=== PATIENT | male | born 1930 | race Caucasian/White ===

== ENCOUNTER 2016-12-09 18:16 | Inpatient (IN) | payer MEDICARE, OTHER ==
[~2016-12-09] VITALS: Ht 172.7 cm; Wt 83.0 kg
[~2016-12-09 18:16] MED LIST: DIGO125T PO; DONE10TA PO; FLUO-191 PO; KDUR10 PO; LEVE500T53 PO; LISI-661 PO; MONT10TA21 PO; OMEP20 PO; RIVA15T PO; SILD25 PO; SIMV5TAB6 PO; TAMS0.4C32 PO; TOLT4CAP33 PO
[2016-12-09 19:16] LABS: ANION GAP 8 mmol/L (8-16); CALCIUM, TOTAL 9.6 mg/dL (8.8-10.5); CARBON DIOXIDE 26 mmol/L (22-29); CHLORIDE 101 mmol/L (98-107); CREATININE 1.15 mg/dL (0.60-1.30); GLOMERULAR FILTR. RATE CALC 60 mL/min (>60); POTASSIUM 4.9 mmol/L (3.5-5.1); SODIUM SERUM 135 mmol/L (136-145); UREA NITROGEN, BLOOD 26 mg/dL (7-18)
[2016-12-09 19:17] LABS: EOSINOPHILS # (AUTO) 0.03 K/uL (0.00-0.70)
[2016-12-09 19:22] LABS: BASOPHILS # (AUTO) 0.03 K/uL (0.00-0.20); BASOPHILS % (AUTO) 0.3 % (0.0-2.0); EOSINOPHILS % (AUTO) 0.36 % (1.0-6.0); LYMPHOCYTES # (AUTO) 1.3 K/uL (1.0-4.8); LYMPHOCYTES % (AUTO) 14.7 % (22.0-44.0); MEAN CORPUSCULAR HEMOGLOBIN 33.2 pg (26.0-34.0); MEAN CORPUSCULAR HGB CONC 33.1 G/dL (31.0-37.0); MEAN CORPUSCULAR VOLUME 100 fL (80-100); MONOCYTES # (AUTO) 1.4 K/uL (0.1-1.0); MONOCYTES % (AUTO) 15.5 % (2.0-9.0); NEUTROPHILS # (AUTO) 6.1 K/uL (1.8-7.7); NEUTROPHILS % (AUTO) 69.1 % (40.0-70.0); PLATELET COUNT (AUTO) 184 K/uL (150-450); RED BLOOD CELL COUNT(AUTO) 5.78 MIL/uL (4.50-5.90); RED CELL DISTRIBUTION WIDTH 14.5 % (11.5-14.5); WHITE BLOOD COUNT (AUTO) 8.8 K/uL (4.5-11.0)
[2016-12-09 19:29] LABS: HEMATOCRIT 57.9 % (41-53); HEMOGLOBIN 19.2 g/dL (13.5-17.5)
[2016-12-09 19:40] LABS: ALANINE AMINOTRANSFERASE 15 U/L (12-78); ALBUMIN 2.9 g/dL (3.4-5.0); ASPARTATE AMINOTRANSFERASE 19 U/L (15-37); CREATINE KINASE, TOTAL 50 U/L (39-308); DIGOXIN 0.21 ng/mL (0.90-2.00); TOTAL PROTEIN, SERUM 7.8 g/dL (6.4-8.2)
[2016-12-09 19:41] LABS: B-TYPE NATRIURETIC PEPTIDE 565 pg/mL (0-100)
[2016-12-09 20:02] LABS: INR 1.2 (0.9-1.1); PROTHROMBIN TIME 13.1 SEC (9.4-11.6)
[2016-12-09 20:22] LABS: APPEARANCE,URINE CLOUDY (CLEAR); GLUCOSE, URINE (UA) NEGATIVE (NEGATIVE); KETONES,URINE NEGATIVE (NEGATIVE); LEUKOCYTE ESTERASE ,URINE MODERATE (NEGATIVE); OCCULT BLOOD,URINE NEGATIVE (NEGATIVE); PROTEIN,URINE NEGATIVE (NEGATIVE)
[2016-12-09 20:25] LABS: ADD UA MICROSCOPIC YES
[2016-12-09 20:55] LABS: SQUAMOUS EPITHELIAL CELL,UR Many /LPF (None Seen)
[2016-12-09 20:57] LABS: WBC,URINE 26-50 /HPF (0-5)
[2016-12-09] MEDS ORDERED: LEVOFLOXACIN 750 MG/D5% WATER 150 ML IV ONE (21:00)
[2016-12-09] MEDS ORDERED: IPRATROPIUM BROMIDE 0.5 MG/2.5 ML NEB SOLUTION NEB ONE (21:00)
[2016-12-09] MEDS ORDERED: ALBUTEROL SULFATE 2.5 MG/0.5 ML NEB SOLUTION NEB ONE (21:00)
[2016-12-09 21:05] LABS: RBC,URINE 0-2 /HPF (0-2)
[2016-12-09] MEDS ORDERED: BISACODYL 10 MG RECTAL RECTAL SUPPOSITORY PR PRN (21:15)
[2016-12-09] MEDS ORDERED: ZOLPIDEM TARTRATE 5 MG TABLET PO PRN (21:15)
[2016-12-09] MEDS ORDERED: MAGNESIUM HYDROXIDE SUSPENSION 30 ML UDCUP PO PRN (21:15)
[2016-12-09] MEDS ORDERED: ONDANSETRON HCL 4 MG/2 ML VIAL IVP PRN (21:15)
[2016-12-09] MEDS ORDERED: OxyCODONE HCL/ACETAMINOPHEN 5-325 MG TABLET PO PRN (21:15)
[2016-12-09] MEDS ORDERED: ACETAMINOPHEN 325 MG TABLET PO PRN (21:15)
[2016-12-09] MEDS ORDERED: ALBUTEROL SULFATE 2.5 MG/0.5 ML NEB SOLUTION NEB PRN (21:15)
[2016-12-09 21:59] VITALS: BP 119/80
[2016-12-09] MEDS ORDERED: PNEUMOCOCCAL VACCINE POLYVALENT 0.5 ML VIAL [PPSV23] IM ONE (23:30)
[2016-12-09 23:45] VITALS: BP 146/71
[2016-12-10] MEDS ORDERED: HEPARIN SODIUM,PORCINE 5,000 UNITS/ML VIAL SQ SCH
[2016-12-10] MEDS ORDERED: 0.9% SODIUM CHLORIDE 5 ML NEB SOLUTION NEB ONE ×4 (02:52→19:30)
[2016-12-10] MEDS: ALBUTEROL SULFATE 2.5 MG/0.5 ML NEB SOLUTION NEB SCH ×4 (03:12→20:39)
[2016-12-10 04:19] VITALS: BP 113/72
[2016-12-10 07:31] VITALS: BP 154/69
[2016-12-10 07:59] LABS: HEMOGLOBIN 17.8 g/dL (13.5-17.5); MEAN CORPUSCULAR HEMOGLOBIN 32.4 pg (26.0-34.0); MEAN CORPUSCULAR VOLUME 101 fL (80-100); PLATELET COUNT (AUTO) 151 K/uL (150-450); RED BLOOD CELL COUNT(AUTO) 5.49 MIL/uL (4.50-5.90); RED CELL DISTRIBUTION WIDTH 14.7 % (11.5-14.5); WHITE BLOOD COUNT (AUTO) 8.4 K/uL (4.5-11.0)
[2016-12-10] MEDS: TAMSULOSIN HCL 0.4 MG CAPSULE PO SCH (08:23)
[2016-12-10] MEDS: MONTELUKAST SODIUM 10 MG TABLET PO SCH (08:23)
[2016-12-10] MEDS: PANTOPRAZOLE SODIUM 40 MG DR TABLET PO SCH (08:23)
[2016-12-10] MEDS: DIGOXIN 125 MCG TABLET PO SCH (08:23)
[2016-12-10] MEDS: FLUoxetine HCL 20 MG CAPSULE PO SCH (08:24)
[2016-12-10] MEDS: POTASSIUM CHLORIDE 10 MEQ ER TABLET PO SCH (08:24)
[2016-12-10 08:42] LABS: ALANINE AMINOTRANSFERASE 14 U/L (12-78); ALBUMIN 2.7 g/dL (3.4-5.0); ANION GAP 11 mmol/L (8-16); ASPARTATE AMINOTRANSFERASE 16 U/L (15-37); BILIRUBIN,TOTAL 0.9 mg/dL (0.1-1.0); CALCIUM, TOTAL 9.1 mg/dL (8.8-10.5); CARBON DIOXIDE 26 mmol/L (22-29); CHLORIDE 100 mmol/L (98-107); CREATININE 1.08 mg/dL (0.60-1.30); GLOMERULAR FILTR. RATE CALC > 60 mL/min (>60); POTASSIUM 4.1 mmol/L (3.5-5.1); SODIUM SERUM 137 mmol/L (136-145); TOTAL PROTEIN, SERUM 7.2 g/dL (6.4-8.2); UREA NITROGEN, BLOOD 25 mg/dL (7-18)
[2016-12-10 08:45] LABS: HEMATOCRIT 55.6 % (41-53)
[2016-12-10] MEDS ORDERED: TOLTERODINE TARTRATE 4 MG PO SCH (09:00)
[2016-12-10] MEDS ORDERED: DONEPEZIL HCL 10 MG TABLET PO SCH (09:00)
[2016-12-10 10:24] LABS: BAND NEUTROPHILS % (MANUAL) 7 % (1-5); LYMPHOCYTES % (MANUAL) 12 % (22-44); RBC MORPHOLOGY COMMENT ABNORMAL R; TOTAL CELLS COUNTED 100
[2016-12-10] MEDS ORDERED: SODIUM CHLORIDE 0.9% 1,000 ML IV ONE (11:00)
[2016-12-10 11:05] VITALS: BP 119/78
[2016-12-10] MEDS: SILDENAFIL CITRATE 25 MG TABLET PO SCH (16:59)
[2016-12-10] MEDS: LISINOPRIL 10 MG TABLET PO SCH (17:00)
[2016-12-10] MEDS: RIVAROXABAN 15 MG TABLET PO SCH (17:00)
[2016-12-10 17:22] VITALS: BP 107/65
[2016-12-10 19:22] VITALS: BP 101/63
[2016-12-10] MEDS ORDERED: LEVOFLOXACIN 500 MG/D5% WATER 100 ML IV SCH (21:00)
[2016-12-10] MEDS: SIMVASTATIN 5 MG TABLET PO SCH (21:25)
[2016-12-10] MEDS: LevETIRAcetam 500 MG TABLET PO SCH (21:25)
[2016-12-10] MEDS ORDERED: 0.9% SODIUM CHLORIDE 10 ML SYRINGE IVP PRN (22:15)
[2016-12-10 23:58] VITALS: BP 90/48
[2016-12-11] VITALS (9 sets, daily range): BP systolic 92–132; BP diastolic 44–71
[2016-12-11] MEDS ORDERED: 0.9% SODIUM CHLORIDE 5 ML NEB SOLUTION NEB ONE ×4 (02:26→20:28)
[2016-12-11] MEDS: ALBUTEROL SULFATE 2.5 MG/0.5 ML NEB SOLUTION NEB SCH ×4 (02:37→21:06)
[2016-12-11] MEDS ORDERED: SODIUM CHLORIDE 0.9% 500 ML IV ONE (05:00)
[2016-12-11 08:02] LABS: BASOPHILS % (AUTO) 0.5 % (0.0-2.0); EOSINOPHILS % (AUTO) 1.1 % (1.0-6.0); HEMATOCRIT 49.6 % (41-53); HEMOGLOBIN 16.2 g/dL (13.5-17.5); LYMPHOCYTES # (AUTO) 1.3 K/uL (1.0-4.8); LYMPHOCYTES % (AUTO) 21.5 % (22.0-44.0); MEAN CORPUSCULAR HEMOGLOBIN 33.3 pg (26.0-34.0); MEAN CORPUSCULAR HGB CONC 32.6 G/dL (31.0-37.0); MEAN CORPUSCULAR VOLUME 102 fL (80-100); MONOCYTES # (AUTO) 1.3 K/uL (0.1-1.0); MONOCYTES % (AUTO) 21.7 % (2.0-9.0); NEUTROPHILS # (AUTO) 3.4 K/uL (1.8-7.7); NEUTROPHILS % (AUTO) 55.2 % (40.0-70.0); PLATELET COUNT (AUTO) 127 K/uL (150-450); RED BLOOD CELL COUNT(AUTO) 4.85 MIL/uL (4.50-5.90); RED CELL DISTRIBUTION WIDTH 14.7 % (11.5-14.5); WHITE BLOOD COUNT (AUTO) 6.2 K/uL (4.5-11.0)
[2016-12-11 08:29] LABS: ALANINE AMINOTRANSFERASE 14 U/L (12-78); ALBUMIN 2.3 g/dL (3.4-5.0); ANION GAP 6 mmol/L (8-16); ASPARTATE AMINOTRANSFERASE 20 U/L (15-37); BILIRUBIN,TOTAL 0.9 mg/dL (0.1-1.0); CALCIUM, TOTAL 8.6 mg/dL (8.8-10.5); CARBON DIOXIDE 30 mmol/L (22-29); CHLORIDE 103 mmol/L (98-107); CREATININE 1.06 mg/dL (0.60-1.30); GLOMERULAR FILTR. RATE CALC > 60 mL/min (>60); POTASSIUM 4.4 mmol/L (3.5-5.1); SODIUM SERUM 139 mmol/L (136-145); TOTAL PROTEIN, SERUM 6.4 g/dL (6.4-8.2); UREA NITROGEN, BLOOD 25 mg/dL (7-18)
[2016-12-11] MEDS: SILDENAFIL CITRATE 25 MG TABLET PO SCH (08:59)
[2016-12-11] MEDS: LISINOPRIL 10 MG TABLET PO SCH (09:00)
[2016-12-11] MEDS: TAMSULOSIN HCL 0.4 MG CAPSULE PO SCH (09:04)
[2016-12-11] MEDS: DIGOXIN 125 MCG TABLET PO SCH (09:04)
[2016-12-11] MEDS: MONTELUKAST SODIUM 10 MG TABLET PO SCH (09:04)
[2016-12-11] MEDS: PANTOPRAZOLE SODIUM 40 MG DR TABLET PO SCH (09:04)
[2016-12-11] MEDS: POTASSIUM CHLORIDE 10 MEQ ER TABLET PO SCH (09:05)
[2016-12-11] MEDS: FLUoxetine HCL 20 MG CAPSULE PO SCH (09:05)
[2016-12-11 09:13] LABS: RBC MORPHOLOGY COMMENT ABNORMAL RBC MORPH
[2016-12-11] MEDS: CefTRIAXone 1 GM/DEXTROSE 50 ML IV SCH (16:31)
[2016-12-11] MEDS: RIVAROXABAN 15 MG TABLET PO SCH (18:38)
[2016-12-11] MEDS: LevETIRAcetam 500 MG TABLET PO SCH ×2 (21:00→22:16)
[2016-12-11] MEDS: SIMVASTATIN 5 MG TABLET PO SCH (22:16)
[2016-12-12] VITALS: BP 119/75
[2016-12-12] MEDS: ALBUTEROL SULFATE 2.5 MG/0.5 ML NEB SOLUTION NEB SCH ×3 (02:16→16:16)
[2016-12-12 04:30] VITALS: BP 132/79
[2016-12-12 05:50] LABS: HEMOGLOBIN 15.6 g/dL (13.5-17.5); MEAN CORPUSCULAR HGB CONC 32.4 G/dL (31.0-37.0); MEAN CORPUSCULAR VOLUME 102 fL (80-100); PLATELET COUNT (AUTO) 130 K/uL (150-450); RED BLOOD CELL COUNT(AUTO) 4.71 MIL/uL (4.50-5.90); RED CELL DISTRIBUTION WIDTH 14.7 % (11.5-14.5); WHITE BLOOD COUNT (AUTO) 5.5 K/uL (4.5-11.0)
[2016-12-12 06:20] LABS: ALANINE AMINOTRANSFERASE 20 U/L (12-78); ALBUMIN 2.3 g/dL (3.4-5.0); ANION GAP 5 mmol/L (8-16); ASPARTATE AMINOTRANSFERASE 18 U/L (15-37); BILIRUBIN,TOTAL 0.7 mg/dL (0.1-1.0); CALCIUM, TOTAL 8.7 mg/dL (8.8-10.5); CARBON DIOXIDE 29 mmol/L (22-29); CHLORIDE 105 mmol/L (98-107); CREATININE 0.99 mg/dL (0.60-1.30); GLOMERULAR FILTR. RATE CALC > 60 mL/min (>60); POTASSIUM 4.7 mmol/L (3.5-5.1); SODIUM SERUM 139 mmol/L (136-145); TOTAL PROTEIN, SERUM 6.3 g/dL (6.4-8.2); UREA NITROGEN, BLOOD 19 mg/dL (7-18)
[2016-12-12 07:14] VITALS: BP 119/69
[2016-12-12 07:15] LABS: BAND NEUTROPHILS % (MANUAL) 5 % (1-5); LYMPHOCYTES % (MANUAL) 46 % (22-44); RBC MORPHOLOGY COMMENT ABNORMAL RBC MORPH; TOTAL CELLS COUNTED 100
[2016-12-12] MEDS ORDERED: 0.9% SODIUM CHLORIDE 5 ML NEB SOLUTION NEB ONE ×2 (07:31→16:14)
[2016-12-12] MEDS: LISINOPRIL 10 MG TABLET PO SCH (07:38)
[2016-12-12] MEDS: POTASSIUM CHLORIDE 10 MEQ ER TABLET PO SCH (08:00)
[2016-12-12] MEDS: TAMSULOSIN HCL 0.4 MG CAPSULE PO SCH (08:00)
[2016-12-12] MEDS: PANTOPRAZOLE SODIUM 40 MG DR TABLET PO SCH (08:00)
[2016-12-12] MEDS: FLUoxetine HCL 20 MG CAPSULE PO SCH (08:00)
[2016-12-12] MEDS: MONTELUKAST SODIUM 10 MG TABLET PO SCH (08:00)
[2016-12-12] MEDS: DIGOXIN 125 MCG TABLET PO SCH (08:00)
[2016-12-12] MEDS: SILDENAFIL CITRATE 25 MG TABLET PO SCH (08:01)
[2016-12-12 11:30] VITALS: BP 102/58
[2016-12-12] MEDS: CefTRIAXone 1 GM/DEXTROSE 50 ML IV SCH (16:33)
[2016-12-12 16:36] VITALS: BP 120/54
[2016-12-12] MEDS ORDERED: CEFX1I IV (20:39)
[2016-12-13] MEDS ORDERED: OMEPRAZOLE 20 MG CAPSULE PO SCH (09:00)
== END 2016-12-12 18:10 | DRG 193 ==
LOC: EMS 18:17 → 5N 21:02 → 6N 12-12 10:55
PROVIDERS: ADMIT Hospitalist; ATTEND Hospitalist
PROC: 3E0234Z Introduction of Serum, Toxoid and Vaccine into Muscle, Percutaneous Approach (ICD-10-PCS; principal; 2016-12-10)
DX: J18.9 Pneumonia, unspecified organism (principal); E43 Unspecified severe protein-calorie malnutrition; J44.1 Chronic obstructive pulmonary disease with (acute) exacerbation; N39.0 Urinary tract infection, site not specified; J44.0 Chronic obstructive pulmonary disease with (acute) lower respiratory infection; J20.9 Acute bronchitis, unspecified; I48.2 Chronic atrial fibrillation; G40.909 Epilepsy, unspecified, not intractable, without status epilepticus; E78.5 Hyperlipidemia, unspecified; F03.90 Unspecified dementia, unspecified severity, without behavioral disturbance, psychotic disturbance, mood disturbance, and anxiety; F32.9 Major depressive disorder, single episode, unspecified; I45.10 Unspecified right bundle-branch block; K21.9 Gastro-esophageal reflux disease without esophagitis; R62.7 Adult failure to thrive; Z16.24 Resistance to multiple antibiotics; R53.81 Other malaise; N39.498 Other specified urinary incontinence; N40.1 Benign prostatic hyperplasia with lower urinary tract symptoms; Z68.27 Body mass index [BMI] 27.0-27.9, adult; Z86.73 Personal history of transient ischemic attack (TIA), and cerebral infarction without residual deficits; Z79.899 Other long term (current) drug therapy; Z23 Encounter for immunization; Z79.01 Long term (current) use of anticoagulants; Z95.0 Presence of cardiac pacemaker
CPT/HCPCS: 87040; 87086; 90471; 93005; 94640; 96365; 97162; 99285; J0696; J1956; J7030; J7040

== ENCOUNTER 2016-12-12 20:23 | Inpatient (IN) | payer MEDICARE, OTHER ==
[~2016-12-12] VITALS: Ht 167.6 cm; Wt 72.7 kg
[2016-12-12] MEDS ORDERED: CEFX1I IV (20:39)
[2016-12-12 21:24] LABS: BASOPHILS % (AUTO) 0.7 % (0.0-2.0); EOSINOPHILS % (AUTO) 0.7 % (1.0-6.0); HEMATOCRIT 50.8 % (41-53); HEMOGLOBIN 16.5 g/dL (13.5-17.5); LYMPHOCYTES % (AUTO) 14.3 % (22.0-44.0); MEAN CORPUSCULAR HEMOGLOBIN 33.1 pg (26.0-34.0); MEAN CORPUSCULAR HGB CONC 32.4 G/dL (31.0-37.0); MEAN CORPUSCULAR VOLUME 102 fL (80-100); MONOCYTES # (AUTO) 1.5 K/uL (0.1-1.0); NEUTROPHILS # (AUTO) 4.7 K/uL (1.8-7.7); NEUTROPHILS % (AUTO) 64.3 % (40.0-70.0); PLATELET COUNT (AUTO) 138 K/uL (150-450); RED BLOOD CELL COUNT(AUTO) 4.97 MIL/uL (4.50-5.90); RED CELL DISTRIBUTION WIDTH 14.8 % (11.5-14.5); WHITE BLOOD COUNT (AUTO) 7.3 K/uL (4.5-11.0)
[2016-12-12 21:33] LABS: INR 1.3 (0.9-1.1)
[2016-12-12] MEDS ORDERED: LORazepam 2 MG/ML VIAL IM ONE (22:45)
[2016-12-12] MEDS ORDERED: LORazepam 1 MG TABLET PO ONE ×2 (22:45→23:00)
[2016-12-12] MEDS ORDERED: HALOPERIDOL LACTATE 5 MG/ML VIAL IM ONE (22:45)
[2016-12-12] MEDS ORDERED: HALOPERIDOL 5 MG TABLET PO ONE ×2 (22:45→23:00)
[2016-12-12 22:48] LABS: CALCIUM, TOTAL 9.1 mg/dL (8.8-10.5); CREATININE 1.17 mg/dL (0.60-1.30); POTASSIUM 4.9 mmol/L (3.5-5.1)
[2016-12-12 22:52] LABS: RBC MORPHOLOGY COMMENT ABNORMAL RBC MORPH
[2016-12-12 22:56] LABS: ALBUMIN 2.5 g/dL (3.4-5.0); BILIRUBIN,TOTAL 0.6 mg/dL (0.1-1.0); DIGOXIN 0.43 ng/mL (0.90-2.00); TOTAL PROTEIN, SERUM 6.8 g/dL (6.4-8.2)
[2016-12-13] MEDS ORDERED: LORazepam 1 MG TABLET PO PRN ×2 (01:30→13:30)
[2016-12-13] MEDS ORDERED: OLANZapine 5 MG RAPDIS TABLET PO PRN (01:30)
[2016-12-13 01:57] LABS: APPEARANCE,URINE CLOUDY (CLEAR); GLUCOSE, URINE (UA) NEGATIVE (NEGATIVE); KETONES,URINE NEGATIVE (NEGATIVE); LEUKOCYTE ESTERASE ,URINE LARGE (NEGATIVE); OCCULT BLOOD,URINE NEGATIVE (NEGATIVE); PH,URINE 5.5 (5.0-8.0); PROTEIN,URINE NEGATIVE (NEGATIVE)
[2016-12-13 02:01] LABS: ADD UA MICROSCOPIC YES
[2016-12-13 02:24] LABS: RBC,URINE None Seen /HPF (0-2); WBC,URINE 51-100 /HPF (0-5)
[2016-12-13 02:40] VITALS: BP 115/97
[2016-12-13 08:00] VITALS: BP 132/88
[2016-12-13] MEDS ORDERED: LOPERAMIDE HCL 2 MG CAPSULE PO PRN (10:00)
[2016-12-13] MEDS ORDERED: PROMETHAZINE HCL 25 MG TABLET PO PRN (10:00)
[2016-12-13] MEDS ORDERED: MAGNESIUM HYDROXIDE SUSPENSION 30 ML UDCUP PO PRN (10:00)
[2016-12-13] MEDS ORDERED: GuaiFENesin/D-METHORPHAN [SUGAR-FREE] 200-20MG/10 ML SYRUP UDCUP PO PRN (10:00)
[2016-12-13] MEDS ORDERED: MAG HYDROX/AL HYDROX/SIMETH ES 30 ML SUSPENSION UDCUP PO PRN (10:00)
[2016-12-13] MEDS ORDERED: HydrOXYzine PAMOATE 50 MG CAPSULE PO PRN (10:00)
[2016-12-13] MEDS: TAMSULOSIN HCL 0.4 MG CAPSULE PO SCH (12:20)
[2016-12-13] MEDS: MONTELUKAST SODIUM 10 MG TABLET PO SCH (12:20)
[2016-12-13] MEDS: DONEPEZIL HCL 10 MG TABLET PO SCH (12:20)
[2016-12-13] MEDS: TOLTERODINE TARTRATE 4 MG PO SCH (12:20)
[2016-12-13] MEDS: LISINOPRIL 10 MG TABLET PO SCH (12:21)
[2016-12-13] MEDS: LEVOFLOXACIN 500 MG TABLET PO SCH (12:21)
[2016-12-13] MEDS: FLUCONAZOLE 100 MG TABLET PO SCH (12:21)
[2016-12-13] MEDS: POTASSIUM CHLORIDE 10 MEQ ER TABLET PO SCH (12:21)
[2016-12-13] MEDS: DIGOXIN 125 MCG TABLET PO SCH (12:21)
[2016-12-13] MEDS: OMEPRAZOLE 20 MG CAPSULE PO SCH (12:23)
[2016-12-13 16:47] VITALS: BP 110/70
[2016-12-13] MEDS: RIVAROXABAN 15 MG TABLET PO SCH (17:26)
[2016-12-13] MEDS: THIAMINE HCL 100 MG TABLET PO SCH (17:26)
[2016-12-13] MEDS: LevETIRAcetam 500 MG TABLET PO SCH (21:02)
[2016-12-13] MEDS: DIVALPROEX SODIUM 250 MG ER TABLET PO SCH (21:02)
[2016-12-13] MEDS: SIMVASTATIN 5 MG TABLET PO SCH (21:03)
[2016-12-13] MEDS: LORazepam 0.5 MG TABLET PO SCH (21:03)
[2016-12-14] MEDS: ZOLPIDEM TARTRATE 5 MG TABLET PO PRN (01:22)
[2016-12-14 05:27] VITALS: BP 122/78
[2016-12-14] MEDS: DONEPEZIL HCL 10 MG TABLET PO SCH (08:19)
[2016-12-14] MEDS: DULoxetine HCL 20 MG CAPSULE PO SCH (08:19)
[2016-12-14] MEDS: TOLTERODINE TARTRATE 4 MG PO SCH (08:19)
[2016-12-14] MEDS: TAMSULOSIN HCL 0.4 MG CAPSULE PO SCH (08:20)
[2016-12-14] MEDS: LEVOFLOXACIN 500 MG TABLET PO SCH (08:20)
[2016-12-14] MEDS: DIGOXIN 125 MCG TABLET PO SCH (08:20)
[2016-12-14] MEDS: FOLIC ACID 1 MG TABLET PO SCH (08:20)
[2016-12-14] MEDS: POTASSIUM CHLORIDE 10 MEQ ER TABLET PO SCH (08:20)
[2016-12-14] MEDS: FLUCONAZOLE 100 MG TABLET PO SCH (08:20)
[2016-12-14] MEDS: MULTIVITAMINS WITH MINERALS, THERAPEUTIC TABLET PO SCH (08:22)
[2016-12-14] MEDS: THIAMINE HCL 100 MG TABLET PO SCH ×2 (08:22→17:38)
[2016-12-14] MEDS: MONTELUKAST SODIUM 10 MG TABLET PO SCH (08:22)
[2016-12-14] MEDS: LISINOPRIL 10 MG TABLET PO SCH (08:22)
[2016-12-14] MEDS: OMEPRAZOLE 20 MG CAPSULE PO SCH (08:22)
[2016-12-14] MEDS ORDERED: DONEPEZIL HCL 10 MG TABLET PO SCH (09:00)
[2016-12-14 09:02] VITALS: BP 118/62
[2016-12-14] MEDS: RIVAROXABAN 15 MG TABLET PO SCH (17:38)
[2016-12-14 18:27] VITALS: BP 137/69
[2016-12-14] MEDS: DIVALPROEX SODIUM 250 MG ER TABLET PO SCH (21:18)
[2016-12-14] MEDS: LevETIRAcetam 500 MG TABLET PO SCH (21:18)
[2016-12-14] MEDS: SIMVASTATIN 5 MG TABLET PO SCH (21:18)
[2016-12-14] MEDS: LORazepam 0.5 MG TABLET PO SCH (21:18)
[2016-12-15] MEDS: ZOLPIDEM TARTRATE 5 MG TABLET PO PRN (01:38)
[2016-12-15] MEDS: ACETAMINOPHEN 325 MG TABLET PO PRN (01:38)
[2016-12-15 01:40] VITALS: BP 127/65
[2016-12-15] MEDS: DONEPEZIL HCL 10 MG TABLET PO SCH (09:44)
[2016-12-15] MEDS: DULoxetine HCL 20 MG CAPSULE PO SCH (09:46)
[2016-12-15] MEDS: FOLIC ACID 1 MG TABLET PO SCH (09:46)
[2016-12-15] MEDS: TOLTERODINE TARTRATE 4 MG PO SCH (09:46)
[2016-12-15] MEDS: THIAMINE HCL 100 MG TABLET PO SCH ×2 (09:47→16:49)
[2016-12-15] MEDS: FLUCONAZOLE 100 MG TABLET PO SCH (09:47)
[2016-12-15] MEDS: MULTIVITAMINS WITH MINERALS, THERAPEUTIC TABLET PO SCH (09:47)
[2016-12-15] MEDS: TAMSULOSIN HCL 0.4 MG CAPSULE PO SCH (09:47)
[2016-12-15] MEDS: POTASSIUM CHLORIDE 10 MEQ ER TABLET PO SCH (09:47)
[2016-12-15] MEDS: DIGOXIN 125 MCG TABLET PO SCH (09:48)
[2016-12-15] MEDS: LEVOFLOXACIN 500 MG TABLET PO SCH (09:48)
[2016-12-15] MEDS: OMEPRAZOLE 20 MG CAPSULE PO SCH (09:49)
[2016-12-15] MEDS: MONTELUKAST SODIUM 10 MG TABLET PO SCH (09:50)
[2016-12-15] MEDS: LISINOPRIL 10 MG TABLET PO SCH (09:51)
[2016-12-15 10:04] VITALS: BP 121/68
[2016-12-15] MEDS ORDERED: DIVA250T45 PO (13:24)
[2016-12-15] MEDS ORDERED: LEVE500T53 PO (13:24)
[2016-12-15] MEDS ORDERED: DULO20CA30 PO (13:24)
[2016-12-15 16:16] VITALS: BP 124/67
[2016-12-15] MEDS: RIVAROXABAN 15 MG TABLET PO SCH (17:49)
[2016-12-15] MEDS: DIVALPROEX SODIUM 250 MG ER TABLET PO SCH (20:05)
[2016-12-15] MEDS: LevETIRAcetam 500 MG TABLET PO SCH (20:05)
[2016-12-15] MEDS: LORazepam 0.5 MG TABLET PO SCH (20:05)
[2016-12-15] MEDS: SIMVASTATIN 5 MG TABLET PO SCH (20:06)
[2016-12-16 01:30] VITALS: BP 107/67
[2016-12-16] MEDS: ACETAMINOPHEN 325 MG TABLET PO PRN ×2 (01:30→08:15)
[2016-12-16] MEDS ORDERED: FLUC100T PO (07:38)
[2016-12-16] MEDS ORDERED: FOLI1 PO (07:39)
[2016-12-16] MEDS ORDERED: LEVO500 PO (07:40)
[2016-12-16] MEDS ORDERED: MONT10TA21 PO (07:43)
[2016-12-16] MEDS ORDERED: THIA100 PO (07:47)
[2016-12-16 08:00] VITALS: BP 135/72
[2016-12-16] MEDS: LEVOFLOXACIN 500 MG TABLET PO SCH (08:02)
[2016-12-16] MEDS: DIGOXIN 125 MCG TABLET PO SCH (08:03)
[2016-12-16] MEDS: MULTIVITAMINS WITH MINERALS, THERAPEUTIC TABLET PO SCH (08:03)
[2016-12-16] MEDS: POTASSIUM CHLORIDE 10 MEQ ER TABLET PO SCH (08:03)
[2016-12-16] MEDS: OMEPRAZOLE 20 MG CAPSULE PO SCH (08:03)
[2016-12-16] MEDS: FOLIC ACID 1 MG TABLET PO SCH (08:03)
[2016-12-16] MEDS: THIAMINE HCL 100 MG TABLET PO SCH (08:03)
[2016-12-16] MEDS: MONTELUKAST SODIUM 10 MG TABLET PO SCH (08:03)
[2016-12-16] MEDS: LISINOPRIL 10 MG TABLET PO SCH (08:03)
[2016-12-16] MEDS: DONEPEZIL HCL 10 MG TABLET PO SCH (08:04)
[2016-12-16] MEDS: TAMSULOSIN HCL 0.4 MG CAPSULE PO SCH (08:04)
[2016-12-16] MEDS: TOLTERODINE TARTRATE 4 MG PO SCH (08:04)
[2016-12-16] MEDS: FLUCONAZOLE 100 MG TABLET PO SCH (08:04)
[2016-12-16] MEDS: DULoxetine HCL 20 MG CAPSULE PO SCH (08:04)
== END 2016-12-16 10:35 | DRG 884 ==
LOC: EMS 20:28 → 3EX 12-13 01:18
PROVIDERS: ADMIT Psychiatry & Neurology Psychiatry; ATTEND Psychiatry & Neurology Psychiatry
PROC: GZ51ZZZ Individual Psychotherapy, Behavioral (ICD-10-PCS; principal; 2016-12-13)
DX: F09 Unspecified mental disorder due to known physiological condition (principal); J18.9 Pneumonia, unspecified organism; J44.0 Chronic obstructive pulmonary disease with (acute) lower respiratory infection; N39.0 Urinary tract infection, site not specified; I48.2 Chronic atrial fibrillation; J44.9 Chronic obstructive pulmonary disease, unspecified; F03.90 Unspecified dementia, unspecified severity, without behavioral disturbance, psychotic disturbance, mood disturbance, and anxiety; K21.9 Gastro-esophageal reflux disease without esophagitis; H54.42 Blindness, left eye, normal vision right eye; G40.909 Epilepsy, unspecified, not intractable, without status epilepticus; E78.5 Hyperlipidemia, unspecified; R32 Unspecified urinary incontinence; D75.1 Secondary polycythemia; D69.6 Thrombocytopenia, unspecified; N40.1 Benign prostatic hyperplasia with lower urinary tract symptoms; I25.10 Atherosclerotic heart disease of native coronary artery without angina pectoris; Z79.899 Other long term (current) drug therapy; Z79.2 Long term (current) use of antibiotics; Z95.0 Presence of cardiac pacemaker; Z91.19 Patient's noncompliance with other medical treatment and regimen; Z86.73 Personal history of transient ischemic attack (TIA), and cerebral infarction without residual deficits; Z87.891 Personal history of nicotine dependence
CPT/HCPCS: 82948; 87081; 87086; 93005; 99285; G0480

== ENCOUNTER 2017-02-13 21:06 | Inpatient (IN) | payer MEDICARE, OTHER ==
[~2017-02-13] VITALS: Ht 167.6 cm; Wt 81.2 kg
[~2017-02-13 21:06] MED LIST changes: +DIVA250T45 PO; +DULO20CA30 PO; +FOLI1 PO; +LEVO500 PO; -SILD25 PO; +THIA100 PO
[2017-02-13 21:27] LABS: GLUCOSE,POINT OF CARE 87 MG/DL (70-110)
[2017-02-13 21:31] LABS: BASOPHILS % (AUTO) 1.8 % (0.0-2.0); EOSINOPHILS % (AUTO) 2.8 % (1.0-6.0); HEMOGLOBIN 17.8 g/dL (13.5-17.5); LYMPHOCYTES # (AUTO) 2.4 K/uL (1.0-4.8); LYMPHOCYTES % (AUTO) 43.9 % (22.0-44.0); MEAN CORPUSCULAR HEMOGLOBIN 32.8 pg (26.0-34.0); MEAN CORPUSCULAR HGB CONC 32.2 G/dL (31.0-37.0); MEAN CORPUSCULAR VOLUME 102 fL (80-100); MONOCYTES % (AUTO) 18.7 % (2.0-9.0); NEUTROPHILS # (AUTO) 1.8 K/uL (1.8-7.7); NEUTROPHILS % (AUTO) 32.8 % (40.0-70.0); RED BLOOD CELL COUNT(AUTO) 5.42 MIL/uL (4.50-5.90); RED CELL DISTRIBUTION WIDTH 16.3 % (11.5-14.5); WHITE BLOOD COUNT (AUTO) 5.5 K/uL (4.5-11.0)
[2017-02-13 21:49] LABS: HEMATOCRIT 55.3 % (41-53)
[2017-02-13 21:51] LABS: ANION GAP 9 mmol/L (8-16); CALCIUM, TOTAL 9.1 mg/dL (8.8-10.5); CARBON DIOXIDE 29 mmol/L (22-29); CHLORIDE 106 mmol/L (98-107); GLOMERULAR FILTR. RATE CALC > 60 mL/min (>60); POTASSIUM 4.6 mmol/L (3.5-5.1); SODIUM SERUM 144 mmol/L (136-145); UREA NITROGEN, BLOOD 17 mg/dL (7-18)
[2017-02-13 21:57] LABS: ALANINE AMINOTRANSFERASE 14 U/L (12-78); ALBUMIN 3.1 g/dL (3.4-5.0); ASPARTATE AMINOTRANSFERASE 12 U/L (15-37); BILIRUBIN,TOTAL 0.8 mg/dL (0.1-1.0); TOTAL PROTEIN, SERUM 7.4 g/dL (6.4-8.2)
[2017-02-13 22:05] LABS: PLATELET COUNT (AUTO) 97 K/uL (150-450)
[2017-02-13 22:06] LABS: RBC MORPHOLOGY COMMENT ABNORMAL RBC MORPH
[2017-02-13 22:13] LABS: DIGOXIN 0.48 ng/mL (0.90-2.00); VALPROIC ACID 33 mcg/mL (50-100)
[2017-02-14] MEDS ORDERED: LORazepam 1 MG TABLET PO ONE (01:00)
[2017-02-14] MEDS ORDERED: HALOPERIDOL 5 MG TABLET PO PRN (12:00)
[2017-02-14] MEDS ORDERED: ZOLPIDEM TARTRATE 10 MG TABLET PO PRN (12:00)
[2017-02-14 17:09] VITALS: BP 133/87
[2017-02-14] MEDS: LevETIRAcetam 500 MG TABLET PO SCH (20:22)
[2017-02-14] MEDS: SIMVASTATIN 5 MG TABLET PO SCH (20:22)
[2017-02-15] MEDS: THIAMINE HCL 100 MG TABLET PO SCH ×2 (07:56→18:07)
[2017-02-15] MEDS: LORazepam 2 MG TABLET PO PRN (07:56)
[2017-02-15] MEDS: LISINOPRIL 10 MG TABLET PO SCH (07:56)
[2017-02-15] MEDS: OMEPRAZOLE 20 MG CAPSULE PO SCH (07:56)
[2017-02-15] MEDS: MONTELUKAST SODIUM 10 MG TABLET PO SCH (07:56)
[2017-02-15] MEDS: LEVOFLOXACIN 500 MG TABLET PO SCH (07:56)
[2017-02-15] MEDS: TOLTERODINE TARTRATE 4 MG PO SCH (07:57)
[2017-02-15] MEDS: DONEPEZIL HCL 10 MG TABLET PO SCH (07:57)
[2017-02-15] MEDS: POTASSIUM CHLORIDE 10 MEQ ER TABLET PO SCH (07:57)
[2017-02-15] MEDS: DIGOXIN 125 MCG TABLET PO SCH (07:57)
[2017-02-15] MEDS: TAMSULOSIN HCL 0.4 MG CAPSULE PO SCH (07:57)
[2017-02-15] MEDS: FOLIC ACID 1 MG TABLET PO SCH (07:57)
[2017-02-15 08:41] VITALS: BP 91/71
[2017-02-15] MEDS: QUEtiapine FUMARATE 25 MG TABLET PO SCH ×2 (13:00→18:07)
[2017-02-15 17:45] VITALS: BP 119/89
[2017-02-15] MEDS: RIVAROXABAN 15 MG TABLET PO SCH (18:07)
[2017-02-15] MEDS: DIVALPROEX SODIUM 500 MG ER TABLET PO SCH (20:01)
[2017-02-15] MEDS: LevETIRAcetam 500 MG TABLET PO SCH (20:02)
[2017-02-15] MEDS: SIMVASTATIN 5 MG TABLET PO SCH (20:02)
[2017-02-16 06:44] LABS: CHOL/HDL RATIO 4.3 (4.2-7.3); THYROID STIMULATING HORMONE 1.57 uIU/mL (0.36-3.74)
[2017-02-16 07:12] LABS: HEMOGLOBIN A1C 5.3 % (4.5-6.2)
[2017-02-16] MEDS: TOLTERODINE TARTRATE 4 MG PO SCH (08:19)
[2017-02-16] MEDS: TAMSULOSIN HCL 0.4 MG CAPSULE PO SCH (08:19)
[2017-02-16] MEDS: FOLIC ACID 1 MG TABLET PO SCH (08:19)
[2017-02-16] MEDS: DONEPEZIL HCL 10 MG TABLET PO SCH (08:19)
[2017-02-16] MEDS: DIGOXIN 125 MCG TABLET PO SCH (08:19)
[2017-02-16] MEDS: QUEtiapine FUMARATE 25 MG TABLET PO SCH ×3 (08:19→17:06)
[2017-02-16] MEDS: LISINOPRIL 10 MG TABLET PO SCH (08:19)
[2017-02-16] MEDS: THIAMINE HCL 100 MG TABLET PO SCH ×2 (08:19→17:06)
[2017-02-16] MEDS: LEVOFLOXACIN 500 MG TABLET PO SCH (08:19)
[2017-02-16] MEDS: POTASSIUM CHLORIDE 10 MEQ ER TABLET PO SCH (08:19)
[2017-02-16] MEDS: OMEPRAZOLE 20 MG CAPSULE PO SCH (08:19)
[2017-02-16] MEDS: MONTELUKAST SODIUM 10 MG TABLET PO SCH (09:00)
[2017-02-16] MEDS: LORazepam 2 MG TABLET PO PRN ×2 (09:37→17:06)
[2017-02-16 13:13] VITALS: BP 140/86
[2017-02-16 16:14] VITALS: BP 128/74
[2017-02-16] MEDS: RIVAROXABAN 15 MG TABLET PO SCH (17:06)
[2017-02-16] MEDS: DIVALPROEX SODIUM 500 MG ER TABLET PO SCH (20:02)
[2017-02-16] MEDS: LevETIRAcetam 500 MG TABLET PO SCH (20:02)
[2017-02-16] MEDS: SIMVASTATIN 5 MG TABLET PO SCH (20:02)
[2017-02-17 08:05] VITALS: BP 137/94
[2017-02-17] MEDS: FOLIC ACID 1 MG TABLET PO SCH (08:36)
[2017-02-17] MEDS: THIAMINE HCL 100 MG TABLET PO SCH ×2 (08:36→17:06)
[2017-02-17] MEDS: DIGOXIN 125 MCG TABLET PO SCH (08:36)
[2017-02-17] MEDS: LISINOPRIL 10 MG TABLET PO SCH (08:36)
[2017-02-17] MEDS: TOLTERODINE TARTRATE 4 MG PO SCH (08:36)
[2017-02-17] MEDS: LEVOFLOXACIN 500 MG TABLET PO SCH (08:36)
[2017-02-17] MEDS: QUEtiapine FUMARATE 25 MG TABLET PO SCH ×3 (08:36→17:06)
[2017-02-17] MEDS: MONTELUKAST SODIUM 10 MG TABLET PO SCH (08:36)
[2017-02-17] MEDS: TAMSULOSIN HCL 0.4 MG CAPSULE PO SCH (08:36)
[2017-02-17] MEDS: OMEPRAZOLE 20 MG CAPSULE PO SCH (08:36)
[2017-02-17] MEDS: POTASSIUM CHLORIDE 10 MEQ ER TABLET PO SCH (08:36)
[2017-02-17] MEDS: DONEPEZIL HCL 10 MG TABLET PO SCH (08:36)
[2017-02-17] MEDS: ACETAMINOPHEN 325 MG TABLET PO PRN (15:41)
[2017-02-17] MEDS: LORazepam 2 MG TABLET PO PRN (15:41)
[2017-02-17 16:02] VITALS: BP 128/78
[2017-02-17] MEDS: RIVAROXABAN 15 MG TABLET PO SCH (17:06)
[2017-02-17] MEDS: LevETIRAcetam 500 MG TABLET PO SCH (20:07)
[2017-02-17] MEDS: SIMVASTATIN 5 MG TABLET PO SCH (20:07)
[2017-02-17] MEDS: DIVALPROEX SODIUM 500 MG ER TABLET PO SCH (20:07)
[2017-02-18 08:00] VITALS: BP 142/79
[2017-02-18] MEDS: LISINOPRIL 10 MG TABLET PO SCH (08:00)
[2017-02-18] MEDS: DIGOXIN 125 MCG TABLET PO SCH (08:00)
[2017-02-18] MEDS: FOLIC ACID 1 MG TABLET PO SCH (08:00)
[2017-02-18] MEDS: DONEPEZIL HCL 10 MG TABLET PO SCH (08:00)
[2017-02-18] MEDS: TOLTERODINE TARTRATE 4 MG PO SCH (08:00)
[2017-02-18] MEDS: LEVOFLOXACIN 500 MG TABLET PO SCH (08:00)
[2017-02-18] MEDS: THIAMINE HCL 100 MG TABLET PO SCH ×2 (08:00→19:16)
[2017-02-18] MEDS: TAMSULOSIN HCL 0.4 MG CAPSULE PO SCH (08:00)
[2017-02-18] MEDS: POTASSIUM CHLORIDE 10 MEQ ER TABLET PO SCH (08:00)
[2017-02-18] MEDS: MONTELUKAST SODIUM 10 MG TABLET PO SCH (08:00)
[2017-02-18] MEDS: QUEtiapine FUMARATE 25 MG TABLET PO SCH ×3 (08:01→19:16)
[2017-02-18] MEDS: OMEPRAZOLE 20 MG CAPSULE PO SCH (08:01)
[2017-02-18 16:30] VITALS: BP 131/66
[2017-02-18] MEDS: RIVAROXABAN 15 MG TABLET PO SCH (19:16)
[2017-02-18] MEDS: SIMVASTATIN 5 MG TABLET PO SCH (20:01)
[2017-02-18] MEDS: LevETIRAcetam 500 MG TABLET PO SCH (20:01)
[2017-02-18] MEDS: DIVALPROEX SODIUM 500 MG ER TABLET PO SCH (20:01)
[2017-02-19] MEDS ORDERED: DOCUSATE SODIUM 100 MG CAPSULE PO PRN (08:30)
[2017-02-19] MEDS: QUEtiapine FUMARATE 25 MG TABLET PO SCH ×3 (09:00→18:11)
[2017-02-19 11:00] VITALS: BP 123/77
[2017-02-19] MEDS: OMEPRAZOLE 20 MG CAPSULE PO SCH (11:57)
[2017-02-19] MEDS: POTASSIUM CHLORIDE 10 MEQ ER TABLET PO SCH (11:57)
[2017-02-19] MEDS: FOLIC ACID 1 MG TABLET PO SCH (11:57)
[2017-02-19] MEDS: DONEPEZIL HCL 10 MG TABLET PO SCH (11:57)
[2017-02-19] MEDS: DIGOXIN 125 MCG TABLET PO SCH (11:58)
[2017-02-19] MEDS: LISINOPRIL 10 MG TABLET PO SCH (11:59)
[2017-02-19] MEDS: MONTELUKAST SODIUM 10 MG TABLET PO SCH (11:59)
[2017-02-19] MEDS: TOLTERODINE TARTRATE 4 MG PO SCH (11:59)
[2017-02-19] MEDS: THIAMINE HCL 100 MG TABLET PO SCH ×2 (11:59→18:11)
[2017-02-19] MEDS: TAMSULOSIN HCL 0.4 MG CAPSULE PO SCH (12:00)
[2017-02-19 16:16] VITALS: BP 125/68
[2017-02-19] MEDS: RIVAROXABAN 15 MG TABLET PO SCH (18:11)
[2017-02-19] MEDS: LevETIRAcetam 500 MG TABLET PO SCH (20:14)
[2017-02-19] MEDS: DIVALPROEX SODIUM 500 MG ER TABLET PO SCH (20:15)
[2017-02-19] MEDS: SIMVASTATIN 5 MG TABLET PO SCH (20:15)
[2017-02-20 09:23] VITALS: BP 133/78
[2017-02-20] MEDS: ACETAMINOPHEN 325 MG TABLET PO PRN (09:26)
[2017-02-20] MEDS: THIAMINE HCL 100 MG TABLET PO SCH (09:27)
[2017-02-20] MEDS: FOLIC ACID 1 MG TABLET PO SCH (09:27)
[2017-02-20] MEDS: QUEtiapine FUMARATE 25 MG TABLET PO SCH ×2 (09:27→12:16)
[2017-02-20] MEDS: OMEPRAZOLE 20 MG CAPSULE PO SCH (09:27)
[2017-02-20] MEDS: TOLTERODINE TARTRATE 4 MG PO SCH (09:27)
[2017-02-20] MEDS: DONEPEZIL HCL 10 MG TABLET PO SCH (09:27)
[2017-02-20] MEDS: MONTELUKAST SODIUM 10 MG TABLET PO SCH (09:28)
[2017-02-20] MEDS: POTASSIUM CHLORIDE 10 MEQ ER TABLET PO SCH (09:28)
[2017-02-20] MEDS: LISINOPRIL 10 MG TABLET PO SCH (09:28)
[2017-02-20] MEDS: TAMSULOSIN HCL 0.4 MG CAPSULE PO SCH (09:28)
[2017-02-20] MEDS: DIGOXIN 125 MCG TABLET PO SCH (09:29)
[2017-02-20] MEDS ORDERED: QUET50TA PO (13:46)
[2017-02-20] MEDS ORDERED: DIVA500T52 PO (13:46)
== END 2017-02-20 14:15 | disposition home or self-care (01) | DRG 884 ==
LOC: EMS 21:08 → 3EX 02-14 15:09
DX: F03.91 Unspecified dementia, unspecified severity, with behavioral disturbance (principal); E78.5 Hyperlipidemia, unspecified; I25.10 Atherosclerotic heart disease of native coronary artery without angina pectoris; J44.9 Chronic obstructive pulmonary disease, unspecified; I50.9 Heart failure, unspecified; I11.0 Hypertensive heart disease with heart failure; G40.909 Epilepsy, unspecified, not intractable, without status epilepticus; N40.0 Benign prostatic hyperplasia without lower urinary tract symptoms; I48.2 Chronic atrial fibrillation; M19.90 Unspecified osteoarthritis, unspecified site; R32 Unspecified urinary incontinence; H54.42 Blindness, left eye, normal vision right eye; K21.9 Gastro-esophageal reflux disease without esophagitis; K59.00 Constipation, unspecified; Z79.01 Long term (current) use of anticoagulants; Z86.73 Personal history of transient ischemic attack (TIA), and cerebral infarction without residual deficits; Z95.0 Presence of cardiac pacemaker; Z79.899 Other long term (current) drug therapy
CPT/HCPCS: 82962; 83036; 84443; 87081; 99285; G0480